=== PATIENT | male | born 1940 | race Caucasian/White ===

== ENCOUNTER 2021-01-14 10:29 | Emergency (ER) | payer MEDICARE ==
[~2021-01-14] VITALS: Ht 180.3 cm; Wt 122.5 kg
[2021-01-14] MEDS ORDERED: Norco 5-325 Ta1 EACH PO (12:33)
== END 2021-01-14 12:51 | disposition home or self-care (01) ==
LOC: ER 10:29
DX: S32.039A Unspecified fracture of third lumbar vertebra, initial encounter for closed fracture (principal); Z88.0 Allergy status to penicillin; Z91.048 Other nonmedicinal substance allergy status; X50.0XXA Overexertion from strenuous movement or load, initial encounter
CPT/HCPCS: 72100; 99283-25

== ENCOUNTER 2021-05-08 06:25 | Day surgery (SDC) | payer MEDICARE ==
[~2021-05-08] VITALS: Ht 177.8 cm; Wt 118.0 kg
[~2021-05-08 06:25] MED LIST: Norco 5-325 Ta1 EACH PO
[2021-05-08] MEDS ORDERED: METO50ER PO (07:22)
[2021-05-08] MEDS ORDERED: Vitamin D1000 UNI1 PO (07:23)
[2021-05-08] MEDS ORDERED: ATOR10 PO (07:23)
[2021-05-08] MEDS ORDERED: FURO20 PO (07:24)
[2021-05-08] MEDS ORDERED: WARF6 PO (07:24)
[2021-05-08] MEDS ORDERED: IBUP800 PO (07:25)
--- NOTE | 2021-05-08 08:15 | NUR ---
PT AWAKE POST CARDIOVERSION, CONVERSING APPROPRIATELY; DENIES PAIN, VSS. PT;S AT BEDSIDE ATTENTIVE.
--- NOTE | 2021-05-08 08:55 | NUR ---
PT DRESSED SELF WITHOUT ISSUE, IV REMOVED-CANNULA INTACT.
--- NOTE | 2021-05-08 09:10 | NUR ---
PT AND RECEIVED DISCHARGE INSTRUCTIONS, MED LIST AND AFTER CARE INSTRUCTIONS; VERBALIZED GOOD UNDERSTANDING. PT LEFT FACILITY VIA W/C, CONDITION STABLE.
== END 2021-05-08 23:52 | disposition home or self-care (01) ==
LOC: MHTC 06:25
DX: I48.0 Paroxysmal atrial fibrillation (principal); I42.0 Dilated cardiomyopathy; I10 Essential (primary) hypertension; I44.0 Atrioventricular block, first degree; R00.1 Bradycardia, unspecified
CPT/HCPCS: 92960; 93005; 93010; J2250; J2310; J2704; J3010; J7120

== ENCOUNTER 2021-12-11 09:04 | Inpatient (IN) | payer MEDICARE ==
[~2021-12-11] VITALS: Ht 177.8 cm; Wt 101.6 kg
[~2021-12-11 09:04] MED LIST changes: +ATOR10 PO; +FURO20 PO; +IBUP800 PO; +METO50ER PO; +Vitamin D1000 UNI1 PO; +WARF6 PO
[2021-12-11 09:22] LABS: BASOPHILS ABSOLUTE AUTO 0.04 K/mm3 (0.00-0.23); BASOPHILS PERCENT AUTO 0 % (0-2); EOSINOPHILS ABSOLUTE AUTO 0.05 K/mm3 (0.00-0.68); EOSINOPHILS PERCENT AUTO 1 % (0-6); Hematocrit 32.7 % (37.0-53.0); Hemoglobin 10.5 g/dL (13.5-17.5); IMMATURE GRAN ABSOLUTE AUTO 0.04 K/mm3 (0.00-0.10); IMMATURE GRAN PERCENT AUTO 0 % (0-1); LYMPHOCYTES ABSOLUTE AUTO 1.31 K/mm3 (0.84-5.20); LYMPHOCYTES PERCENT AUTO 12 % (21-46); MONOCYTES ABSOLUTE AUTO 1.12 K/mm3 (0.16-1.47); MONOCYTES PERCENT AUTO 10 % (4-13); Mean Corpuscular HGB 29.7 pg (26.0-34.0); Mean Corpuscular HGB Conc 32.1 g/dL (31.5-36.5); Mean Corpuscular Volume 93 fL (80-100); Mean Platelet Volume 8.9 fL (9.1-12.4); NEUTROPHILS ABSOLUTE AUTO 8.28 K/mm3 (1.96-9.15); NEUTROPHILS PERCENT AUTO 76 % (41-73); Platelet Count 359 K/mm3 (150-400); RDW Coefficient Variation 14.4 % (11.7-14.2); Red Blood Cell Count 3.53 M/mm3 (4.30-5.90); White Blood Cell Count 10.84 K/mm3 (4.00-11.30)
[2021-12-11 09:37] LABS: Albumin, Blood 2.8 g/dL (3.4-5.0); Albumin/Globulin Ratio 0.8 (0.8-1.8); Bun/Creatinine Ratio 17.3 (12.0-20.0); Calcium, Blood 8.8 mg/dL (8.5-10.1); Creatinine, Blood 1.56 mg/dL (0.60-1.20); Globulin, Blood 3.6 g/dL (2.2-4.0); Potassium, Blood 4.4 mmol/L (3.5-5.5); Total Protein, Blood 6.4 g/dL (6.4-8.2)
[2021-12-11 09:54] LABS: International Normalized Ratio 2.54; Prothrombin Time Results 25.1 Sec (9.7-11.5)
[2021-12-11] MEDS ORDERED: LOSA25 PO (11:06)
[2021-12-11] MEDS ORDERED: Coumadin2.5 MG PO (11:12)
[2021-12-11] MEDS ORDERED: WARF5 PO (11:12)
[2021-12-11 12:55] LABS: Prostate Specific Antigen <0.010 ng/mL (0.000-4.000)
--- NOTE | 2021-12-11 17:47 | NUR ---
NO ACUTE EVENTS SINCE PT ARRIVED TO [id number]. HR 50-60s, PT REPORTS NO DIZZINESS, LIGHTHEADEDNESS, CHEST PAIN/PRESSURE, OR DYSPNEA. VSS. DR BONDS AT BEDSIDE THIS AFTERNOON FOR CONSULTATION, PLAN TO CHANGE MEDICATIONS AND MONITOR. PT IS ALERT, ORIENTED AND ABLE TO USE CALL LIGHT FOR NEEDS. VERBALIZES UNDERSTANDING TO CALL STAFF TO GET OOB. CALL LIGHT IN REACH, WILL CONTINUE TO MONITOR AND GIVE REPORT TO NOC SHIFT RN.
--- NOTE | 2021-12-12 06:38 | NUR ---
SHIFT SUMMARY PATIENT ALERT AND ORIENTED x4, ABLE TO MAKE NEEDS KNOWN TO STAFF. VSS, PATIENT REMAINS ON RA WITH 02 SAT >90%. NO TELE EVENTS OVERNIGHT. CONTINUES TO DENY CHEST PAIN OR PRESSURE. PATIENT IS USING URINAL AT BEDSIDE BUT IS A 1 PERSON ASSIST TO THE BATHROOM. PATIENT ABLE TO SLEEP FOR MAJORITY OF SHIFT WITHOUT ANY COMPLAINTS OF PAIN OR NEARING SYNCOPAL EPISODES. NO OTHER SIGNIFICANT CHANGES THIS SHIFT, WILL REPORT TO DAY SHIFT RN.
--- NOTE | 2021-12-12 09:12 | NUR ---
ASSUMED CARE OF PT AT 0700 THIS AM. HR NOTED TO BE IN THE 140s, APPEARS TO ME TO BE AFIB RVR WITH PVCs, HR SOMETIMES SLOWS TO 90s, P WAVES ARE VISABLE, FREQUENT PVCs, BIGEMINY AT TIMES. PT REPORTS LIGHTHEADEDNESS AND APPEARS PALE, HR 140s AT THIS TIME, BP 110/82. DR PALMA NOTIFIED, ORDER RECEIVED TO RESTART PT'S HOME DOSE OF METOPROLOL. WILL CONTINUE TO MONITOR AND REPORT CHANGES TO DR PALMA. PT HAS CALL LIGHT IN REACH.
--- NOTE | 2021-12-12 11:25 | NUR ---
PT'S HR NOTED TO BE 140-150s, PT UP AMBULATING TO RESTROOM. PT REPORTS WEAKNESS AND DIZZINESS, BACK TO BED. BP NOTED TO BE 88/75, THEN 94/63 THEN 108/78 WITH HR DECREASING INTO THE 70-80s. PT NO LONGER SYMPTOMATIC AFTER HR HAS DECREASED. PT'S AT BEDSIDE, STATES SHE WOULD LIKE THE PT TO BE UP WALKING AROUND "SO YOU CAN SEE WHAT IS HAPPENING TO HIM AT HOME." DISCUSSED WITH HER THAT THIS WOULD NOT BE SAFE GIVEN THAT HE IS SYMPTOMATIC, BUT WE ARE CONSTANTLY MONITORING HIS HR VIA TELEMETRY. WILL DISCUSS WITH DR PERRY WHEN SHE ROUNDS.
--- NOTE | 2021-12-12 17:40 | NUR ---
PT'S HR HAS REMAINED 60-70s SINCE PREVIOUS EPISODE TODAY. DR CLEVELAND ROUNDED ON PT AND DISCUSSED HEART RATE/RYTHM AT LENGTH, AGREES WITH PLAN FOR METOPROLOL SUCC 50MG DAILY, POSSIBLE ANTIARRYTHMIC SUCH AMIO IF NEEDED. ORTHOSTATIC VS COMPLETED AND CHARTED, SEE VS. PT DENIED DIZZINESS UPON STANDING HR DID INCREASE FROM SITTING POSITION. DR CLEVELAND TO ADDRESS RESTARTING PT ON WARFARIN TOMORROW. NO OTHER CHANGES TO PT CONDITION NOTED, CALL LIGHT IN REACH, WILL CONTINUE TO MONITOR AND GIVE REPORT TO BRANDON ORONA RN.
--- NOTE | 2021-12-13 06:08 | NUR ---
SHIFT SUMMARY PATIENT ALERT AND ORIENTED x4, VSS, PATIENT ON RA WITH O2 SAT >90%. PATIENT DOES TACH UP TO 150s WITH ACTIVITY BUT HR IS ABLE TO COME BACK DOWN TO 70-80s WHEN PATIENT IS AT REST. PATIENT ABLE TO SLEEP FOR MAJORITY OF NIGHT WITHOUT COMPLAINTS OF PAIN. NO DIZZY SPELLS OVERNIGHT, PATIENT ABLE TO AMBULATE INTO BATHROOM WITH 1 PERSON ASSIST. NO OTHER SIGNIFICANT CHANGES THIS SHIFT, WILL REPORT TO DAY SHIFT RN.
--- NOTE | 2021-12-13 07:30 | NUR ---
ASSUMED CARE OF PT AT 0700 THIS AM. 0730: PT UP TO RESTROOM, HR INCREASED TO 150-160s. PT BACK TO BED, HR CONTINUED TO BE 130-140s, EKG OBTAINED, PT GIVEN SCHEDULED PO METOPROLOL/LASIX. HYPOTENSION NOTED, SEE DOCUMENTED VS. PT REPORTS DIZZINESS AND IS NOTED TO BE PALE/DIAPHORETIC. BP 116/61 AT TIME OF METOPROLOL ADMINISTRATION. 0820: HR CONTINUED TO BE 120-130s POST DOSE OF METOPROLOL, HYPOTENSION HAS NOT IMPROVED, DR PERRY NOTIFIED AND ORDERS FOR AMIODARONE GTT RECEIVED. 1020: HR NOW CONTROLLED AND BP HAVE IMPROVED. SEE DOCUMENTED VS. PT IS NO LONGER SYMPTOMATIC. AMIODARONE STARTED 914, PT TOLERATING WELL. WILL CONTINUE TO MONITOR.
[2021-12-13 09:17] LABS: Hematocrit 34.1 % (37.0-53.0); Hemoglobin 10.8 g/dL (13.5-17.5); Mean Corpuscular HGB 29.2 pg (26.0-34.0); Mean Corpuscular HGB Conc 31.7 g/dL (31.5-36.5); Mean Corpuscular Volume 92 fL (80-100); Mean Platelet Volume 8.7 fL (9.1-12.4); Platelet Count 339 K/mm3 (150-400); RDW Coefficient Variation 14.2 % (11.7-14.2); RDW Standard Deviation 48.2 fL (35.1-46.3); White Blood Cell Count 9.82 K/mm3 (4.00-11.30)
[2021-12-13 09:35] LABS: International Normalized Ratio 2.2; Prothrombin Time Results 21.9 Sec (9.7-11.5)
[2021-12-13 09:39] LABS: Albumin, Blood 2.8 g/dL (3.4-5.0); Albumin/Globulin Ratio 0.7 (0.8-1.8); Bilirubin, Total 1.1 mg/dL (0.1-1.0); Bun/Creatinine Ratio 16.2 (12.0-20.0); Calcium, Blood 9.2 mg/dL (8.5-10.1); Creatinine, Blood 1.48 mg/dL (0.60-1.20); Globulin, Blood 3.8 g/dL (2.2-4.0); Potassium, Blood 4.9 mmol/L (3.5-5.5); Total Protein, Blood 6.6 g/dL (6.4-8.2)
--- NOTE | 2021-12-13 17:33 | NUR ---
PT'S HR HAS STABILIZED AFTER AMIO INFUSION STARTED. PT HAS BEEN RESTING COMFORTABLY IN BED, NO C/O DIZZINESS OR FEELING FAINT. PT ABLE TO AMBULATE TO THE RESTROOM WITH SBA HR 70-90s ON TELEMETRY. PT REPORTS HE IS "FEELING MUCH BETTER." DR CLEVELAND IN TO ROUND, SPOKE WITH PT AND HIS FAMILY ABOUT PLAN OF CARE FROM CARDIOLOGY STAND POINT. PT WILL BE STARTED ON PO AMIO IN THE AM. NO OTHER CHANGES TO PT CONDITION NOTED TODAY, PT ABLE TO USE CALL LIGHT FOR NEEDS, CALL LIGHT IN REACH, WILL CONTINUE TO MONITOR AND GIVE REPORT TO NOC SHIFT RN.
[2021-12-14 04:17] LABS: Hematocrit 32.5 % (37.0-53.0); Hemoglobin 10.2 g/dL (13.5-17.5); Mean Corpuscular HGB 28.9 pg (26.0-34.0); Mean Corpuscular HGB Conc 31.4 g/dL (31.5-36.5); Mean Corpuscular Volume 92 fL (80-100); Mean Platelet Volume 9.6 fL (9.1-12.4); Platelet Count 344 K/mm3 (150-400); RDW Coefficient Variation 14.1 % (11.7-14.2); RDW Standard Deviation 47.9 fL (35.1-46.3); Red Blood Cell Count 3.53 M/mm3 (4.30-5.90); White Blood Cell Count 8.87 K/mm3 (4.00-11.30)
[2021-12-14 04:31] LABS: International Normalized Ratio 1.95; Prothrombin Time Results 19.6 Sec (9.7-11.5)
[2021-12-14 04:40] LABS: Albumin, Blood 2.7 g/dL (3.4-5.0); Albumin/Globulin Ratio 0.8 (0.8-1.8); Bilirubin, Total 1.1 mg/dL (0.1-1.0); Bun/Creatinine Ratio 19.6 (12.0-20.0); Calcium, Blood 8.7 mg/dL (8.5-10.1); Creatinine, Blood 1.43 mg/dL (0.60-1.20); Globulin, Blood 3.6 g/dL (2.2-4.0); Total Protein, Blood 6.3 g/dL (6.4-8.2)
--- NOTE | 2021-12-14 05:48 | NUR ---
SHIFT SUMMARY PATIENT ALERT AND ORIENTED x4, ABLE TO MAKE NEEDS KNOWN TO STAFF. VSS, PATIENT REMAINS ON RA WITH O2 SAT >90%. NO EVENTS ON TELE OR DIZZY SPELLS OVERNIGHT. CONTINUES TO DENY CHEST PAIN OR PRESSURE. PATIENT AMBULATING INTO BATHROOM STANDBY ASSIST, ADEQUATE OUTPUT. PATIENT ABLE TO SLEEP FOR MAJORITY OF SHIFT, EASILY WAKES TO VERBAL STIMULI. DURING MORNING LAB ROUNDS, CUSTOM BOOKBINDER NOTICED IV AMIO GTT INFUSING INTO LOOKED CONCERNING. CORPORATE ETHICS OFFICER INTO ROOM, AMIO GTT STOPPED AND REMOVED FROM HUB. NEW IV PLACED, CALL TO HOSPITALIST REGARDING AMIO REVERSAL. HOSPITAL DOES NOT CARRY, PHARMACIST RECOMMENDED HEAT, COMPRESSION, AND ELEVATION. PATIENT IS NOT REPORTING PAIN AT SITE AT THIS TIME. PO AMIO STARTED THIS MORNING, AMIO GTT TO BE OFF AT 0900. NO OTHER SIGNIFICANT CHANGES THIS SHIFT, WILL REPORT TO DAY SHIFT RN.
[2021-12-14] MEDS ORDERED: THERA-D2000 UNIT PO (09:44)
[2021-12-14] MEDS ORDERED: Amiodarone HCl200 MG PO (10:32)
[2021-12-14] MEDS ORDERED: AMIODARONE HCL400 M2 PO (10:33)
--- NOTE | 2021-12-14 10:50 | NUR ---
DISCHARG SUMMARY PT IS A/Ox4 AND FOLLOWS DIRECTIONS FROM STAFF. PT AND SPOUSE RECEIVED DC TEACHING INCLUDING NEW MEDICATIONS, FOLLOW UP APPOINTMENTS, AND PURPOSE OF ZIO PATCH. PT AND SPOUSE EXPRESSED UNDERSTANDING OF ALL DC TEACHING AND ALL QUESTIONS ANSWERED BY THIS RN. BP AND HR STABLE. PT MAINTAINED SPO2 >95 ON RA WITH NO SOB OR DYSPNEA NOTED. NADN, VSS UPON DC
== END 2021-12-14 11:43 | disposition home or self-care (01) | DRG 309 ==
LOC: ER 09:04 → PCU 09:05
PROVIDERS: Emergency Medicine; Internal Medicine; Nurse Practitioner Acute Care; ADMIT Internal Medicine
DX: R00.1 Bradycardia, unspecified (principal); I50.22 Chronic systolic (congestive) heart failure; I48.0 Paroxysmal atrial fibrillation; C61 Malignant neoplasm of prostate; I42.9 Cardiomyopathy, unspecified; I49.5 Sick sinus syndrome; N18.30 Chronic kidney disease, stage 3 unspecified; E66.9 Obesity, unspecified; I08.1 Rheumatic disorders of both mitral and tricuspid valves; D63.1 Anemia in chronic kidney disease; Z91.048 Other nonmedicinal substance allergy status; Z88.0 Allergy status to penicillin; Z79.899 Other long term (current) drug therapy; Z79.01 Long term (current) use of anticoagulants
CPT/HCPCS: 36415; 71045; 80053; 82533; 83735; 83880; 84153; 84443; 84484; 85025; 85027; 85610; 93005; 93010; 93246; 93306; 96360; 99285-25; A9270; G0378; J0282; J7030; J7060

== ENCOUNTER 2024-06-15 10:21 | Emergency (ER) | payer MEDICARE ==
[~2024-06-15] VITALS: Ht 177.8 cm; Wt 93.0 kg
[~2024-06-15 10:21] MED LIST changes: +AMIODARONE HCL400 M2 PO; +Amiodarone HCl200 MG PO; +Coumadin2.5 MG PO; +LOSA25 PO; +THERA-D2000 UNIT PO; +WARF5 PO
[2024-06-15 11:13] LABS: BASOPHILS ABSOLUTE AUTO 0.07 K/mm3 (0.00-0.23); BASOPHILS PERCENT AUTO 1 % (0-2); EOSINOPHILS ABSOLUTE AUTO 0.01 K/mm3 (0.00-0.68); EOSINOPHILS PERCENT AUTO 0 % (0-6); Hematocrit 33.3 % (37.0-53.0); Hemoglobin 10.2 g/dL (13.5-17.5); IMMATURE GRAN ABSOLUTE AUTO 0.04 K/mm3 (0.00-0.10); IMMATURE GRAN PERCENT AUTO 0 % (0-1); LYMPHOCYTES ABSOLUTE AUTO 1.23 K/mm3 (0.84-5.20); LYMPHOCYTES PERCENT AUTO 12 % (21-46); MONOCYTES ABSOLUTE AUTO 1.01 K/mm3 (0.16-1.47); MONOCYTES PERCENT AUTO 10 % (4-13); Mean Corpuscular HGB 27.9 pg (26.0-34.0); Mean Corpuscular HGB Conc 30.6 g/dL (31.5-36.5); Mean Corpuscular Volume 91 fL (80-100); Mean Platelet Volume 8.7 fL (9.1-12.4); NEUTROPHILS ABSOLUTE AUTO 8.06 K/mm3 (1.96-9.15); NEUTROPHILS PERCENT AUTO 77 % (41-73); Platelet Count 369 K/mm3 (150-400); RDW Coefficient Variation 14.5 % (11.7-14.2); RDW Standard Deviation 48.7 fL (35.1-46.3); Red Blood Cell Count 3.65 M/mm3 (4.30-5.90); White Blood Cell Count 10.42 K/mm3 (4.00-11.30)
[2024-06-15] MEDS ORDERED: METOPROLOL TART5010 PO (11:22)
[2024-06-15] MEDS ORDERED: ACET500 PO (11:23)
[2024-06-15 11:40] LABS: Albumin, Blood 3.3 g/dL (3.4-5.0); Albumin/Globulin Ratio 0.8 (0.8-1.8); Bilirubin, Total 1.1 mg/dL (0.1-1.0); Bun/Creatinine Ratio 16.2 (12.0-20.0); Calcium, Blood 9.3 mg/dL (8.5-10.1); Creatinine, Blood 1.54 mg/dL (0.60-1.20); Globulin, Blood 4.2 g/dL (2.2-4.0); Potassium, Blood 4.3 mmol/L (3.5-5.5); Total Protein, Blood 7.5 g/dL (6.4-8.2)
[2024-06-15 13:15] LABS: Source, Urine Voided
[2024-06-15 13:56] LABS: Appearance, Urine Clear (Clear); Bilirubin, Urine Neg (Neg); Blood, Urine Neg (Neg); Glucose Qualitative, Urine Neg (Neg); Ketones, Urine Neg (Neg); Leukocyte Esterase, Urine Neg (Neg); Nitrite, Urine Neg (Neg); Protein, Urine Neg (Neg); Urobilinogen, Urine NORM (Normal)
[2024-06-15 14:13] LABS: Color, Urine Pale Yellow (P-Yellow)
[2024-06-15 14:51] VITALS: BP 102/73
== END 2024-06-15 15:09 | disposition home or self-care (01) ==
LOC: ER 10:21
PROVIDERS: Emergency Medicine
DX: N28.89 Other specified disorders of kidney and ureter (principal); Z79.1 Long term (current) use of non-steroidal anti-inflammatories (NSAID); Z79.899 Other long term (current) drug therapy; Z88.0 Allergy status to penicillin; Z91.048 Other nonmedicinal substance allergy status; Z79.01 Long term (current) use of anticoagulants; N18.4 Chronic kidney disease, stage 4 (severe); E78.5 Hyperlipidemia, unspecified; I48.91 Unspecified atrial fibrillation
CPT/HCPCS: 74177; 80053; 81003; 83690; 85025; 93005; 93010; 99283-25; Q9967

== ENCOUNTER 2024-06-27 07:03 | Emergency (ER) | payer MEDICARE ==
[~2024-06-27] VITALS: Ht 180.3 cm; Wt 91.6 kg
[~2024-06-27 07:03] MED LIST changes: +ACET500 PO; +METOPROLOL TART5010 PO; -THERA-D2000 UNIT PO
[2024-06-27 08:13] LABS: BASOPHILS ABSOLUTE AUTO 0.04 K/mm3 (0.00-0.23); BASOPHILS PERCENT AUTO 0 % (0-2); EOSINOPHILS ABSOLUTE AUTO 0.06 K/mm3 (0.00-0.68); EOSINOPHILS PERCENT AUTO 1 % (0-6); Hematocrit 31.3 % (37.0-53.0); Hemoglobin 9.4 g/dL (13.5-17.5); IMMATURE GRAN ABSOLUTE AUTO 0.06 K/mm3 (0.00-0.10); IMMATURE GRAN PERCENT AUTO 1 % (0-1); LYMPHOCYTES ABSOLUTE AUTO 1.15 K/mm3 (0.84-5.20); LYMPHOCYTES PERCENT AUTO 11 % (21-46); MONOCYTES ABSOLUTE AUTO 1.08 K/mm3 (0.16-1.47); MONOCYTES PERCENT AUTO 11 % (4-13); Mean Corpuscular HGB 27.8 pg (26.0-34.0); Mean Corpuscular Volume 93 fL (80-100); Mean Platelet Volume 8.3 fL (9.1-12.4); NEUTROPHILS ABSOLUTE AUTO 7.83 K/mm3 (1.96-9.15); NEUTROPHILS PERCENT AUTO 77 % (41-73); Platelet Count 366 K/mm3 (150-400); RDW Coefficient Variation 14.4 % (11.7-14.2); RDW Standard Deviation 48.8 fL (35.1-46.3); Red Blood Cell Count 3.38 M/mm3 (4.30-5.90); White Blood Cell Count 10.22 K/mm3 (4.00-11.30)
[2024-06-27 08:29] LABS: International Normalized Ratio 1.1; Prothrombin Time Results 11.7 Sec (9.7-11.5)
[2024-06-27 08:48] LABS: Albumin, Blood 2.7 g/dL (3.4-5.0); Albumin/Globulin Ratio 0.7 (0.8-1.8); Bilirubin, Total 0.6 mg/dL (0.1-1.0); Bun/Creatinine Ratio 13.6 (12.0-20.0); Calcium, Blood 8.8 mg/dL (8.5-10.1); Creatinine, Blood 1.32 mg/dL (0.60-1.20); Globulin, Blood 3.7 g/dL (2.2-4.0); Potassium, Blood 4.1 mmol/L (3.5-5.5); Total Protein, Blood 6.4 g/dL (6.4-8.2)
[2024-06-27 09:46] VITALS: BP 114/85
== END 2024-06-27 09:47 | disposition home or self-care (01) ==
LOC: ER 07:03
PROVIDERS: Student in an Organized Health Care Education/Training Program
DX: K92.2 Gastrointestinal hemorrhage, unspecified (principal); N28.89 Other specified disorders of kidney and ureter; R53.83 Other fatigue; E78.5 Hyperlipidemia, unspecified; I48.91 Unspecified atrial fibrillation; Z79.899 Other long term (current) drug therapy; Z88.0 Allergy status to penicillin; Z91.048 Other nonmedicinal substance allergy status
CPT/HCPCS: 80053; 85025; 85610; 85730; 86850; 86900; 86901; 99285-25

== ENCOUNTER 2024-07-05 06:24 | Day surgery (SDC) | payer MEDICARE ==
[~2024-07-05] VITALS: Ht 177.8 cm; Wt 87.0 kg
[~2024-07-05 06:24] MED LIST changes: +Lactated Ringer's 1,000 ML IV SCH
[2024-07-05] MEDS ORDERED: propofoL 40 ML IV ONE (06:33)
[2024-07-05] MEDS ORDERED: Lidocaine HCl 2% 10 ML SDA ONE (06:33)
[2024-07-05 06:55] VITALS: BP 134/99
[2024-07-05] MEDS ORDERED: ATOR20 PO (06:57)
[2024-07-05 07:01] VITALS: BP 126/75
--- NOTE | 2024-07-05 07:12 | NUR ---
History, Chart, Medications and Allergies reviewed before start of procedure. Lungs clear T/O to Auscultation. Patient states colon prep results clear. Patient confirms NPO status and agrees with scheduled surgery. Pre-Op teaching done. Pt verbalizes understanding.
--- NOTE | 2024-07-05 08:12 | NUR ---
07/05/24 0812 Aracely Cota History, Chart, Medications and Allergies reviewed before start of procedure.O2 VIA POM INTACT THROUGHOUT SEDATION/PROCEDURE. MONITOR INTACT WITH CONTINUOUS PULSE OXIMETRY, CONTINUOUS END TITAL CO2, 3-LEAD EKG AND INTERMITTENT BLOOD PRESSURE. See Anesthesia records.
[2024-07-05 08:31] VITALS: BP 107/77
[2024-07-05 08:49] VITALS: BP 114/71
[2024-07-05] MEDS ORDERED: Phenylephrine HCl 100 MCG/ML-NS 10MLSYR (1MG/10ML) IV ONE (14:46)
== END 2024-07-05 23:00 | disposition home or self-care (01) ==
LOC: ORSCMMR 06:24 → ORD 07:30 → ORSCMMR 23:00
PROVIDERS: Specialist
PROC: 0DBN8ZX Excision of Sigmoid Colon, Via Natural or Artificial Opening Endoscopic, Diagnostic (ICD-10-PCS; principal; 2024-07-05 07:30)
PROC: 0DJ08ZZ Inspection of Upper Intestinal Tract, Via Natural or Artificial Opening Endoscopic (ICD-10-PCS; 2024-07-05 07:30)
PROC: 0W3P7ZZ Control Bleeding in Gastrointestinal Tract, Via Natural or Artificial Opening (ICD-10-PCS; 2024-07-05 07:30)
DX: D64.9 Anemia, unspecified (principal); K92.1 Melena; K64.8 Other hemorrhoids; K57.30 Diverticulosis of large intestine without perforation or abscess without bleeding; I12.9 Hypertensive chronic kidney disease with stage 1 through stage 4 chronic kidney disease, or unspecified chronic kidney disease; N18.30 Chronic kidney disease, stage 3 unspecified; K44.9 Diaphragmatic hernia without obstruction or gangrene; I27.20 Pulmonary hypertension, unspecified; I48.91 Unspecified atrial fibrillation; E78.5 Hyperlipidemia, unspecified; I35.0 Nonrheumatic aortic (valve) stenosis; K59.00 Constipation, unspecified; K63.89 Other specified diseases of intestine; Z85.46 Personal history of malignant neoplasm of prostate; G47.33 Obstructive sleep apnea (adult) (pediatric); Z87.891 Personal history of nicotine dependence; Z79.899 Other long term (current) drug therapy
CPT/HCPCS: 88305; J2003; J2371; J2704; J7120

== ENCOUNTER → 2024-07-16 | Outpatient (CLI) | payer MEDICARE ==
[~2024-07-16] MED LIST changes: +ATOR20 PO; -Lactated Ringer's 1,000 ML IV SCH
[2024-07-16 11:42] LABS: Stool Occult Bld Immuno 1 Negative (NEGATIVE)
== END ==
LOC: LAB 08:21 → LAB SHORT 08:21
PROVIDERS: Family Medicine
DX: K92.1 Melena (principal); R63.4 Abnormal weight loss
CPT/HCPCS: G0328